=== PATIENT | female | born 1995 | race African-American/Black ===

== ENCOUNTER 2017-09-10 19:22 | Emergency (ER) | payer SELFPAY ==
[~2017-09-10] VITALS: Ht 177.8 cm; Wt 60.0 kg
[2017-09-10] MEDS ORDERED: SODIUM CHLORIDE 0.9% 1,000 ML IV ONE (22:52)
[2017-09-11 00:46] LABS: CHLORIDE 107 mEq/L (98-107)
[2017-09-11 00:47] LABS: BASOPHILS % 0.4 % (0.0-2.0); EOSINOPHILS % 0.9 % (0.0-5.0); HEMATOCRIT. 38.4 % (36.0-48.0); HEMOGLOBIN. 13.7 g/dL (12.0-16.0); INR 1.1; LYMPHOCYTES % 35.3 % (20.0-50.0); MEAN CORPUSCULAR VOLUME 95.2 fL (81.0-99.0); MEAN PLATELET VOLUME 7.7 fl (7.4-10.4); MONOCYTES % 10.3 % (2.0-8.0); NEUTROPHILS % 53.1 % (40.0-76.0); PLATELET 214 x1000/uL (130-400); PROTHROMBIN TIME 11.6 sec (9.4-11.6); RED BLOOD CELL COUNT 4.04 mill/uL (4.2-5.4); RED CELL DISTRIBUTION WIDTH 12.5 % (11.6-14.6)
[2017-09-11 00:52] LABS: HCG SCREEN NEGATIVE
[2017-09-11] MEDS ORDERED: ONDANSETRON HCL 4MG/2ML VIAL IV STA (01:01)
[2017-09-11] MEDS ORDERED: FAMOTIDINE 20MG/2ML VIAL IV STA (01:01)
[2017-09-11] MEDS ORDERED: KETOROLAC 30MG/ML VIAL IV STA (01:01)
[2017-09-11 02:51] VITALS: BP 95/53
[2017-09-11 03:21] LABS: CLARITY URINE CLOUDY (CLEAR); COLOR URINE DARK YELLOW (YELLOW); KETONES URINE 1+ (NEGATIVE); LEUKOCYTE ESTERASE URINE 1+ (NEGATIVE); NITRITE URINE POSITIVE (NEGATIVE); OCCULT BLOOD URINE NEGATIVE (NEGATIVE); PH URINE 6.5 (4.5-8.0); PROTEIN URINE TRACE (NEGATIVE); SPECIFIC GRAVITY URINE 1.033 (1.005-1.030)
== END 2017-09-11 03:40 | disposition home or self-care (01) ==
LOC: ER 19:22
DX: N39.0 Urinary tract infection, site not specified (principal); F17.200 Nicotine dependence, unspecified, uncomplicated; F12.10 Cannabis abuse, uncomplicated
CPT/HCPCS: 36415; 76705; 80053; 81003; 83690; 84703; 85025; 85610; 87086; 96361; 96374; 96375; 99285; J1885; J2405; J3490; J7030; Z7610